=== PATIENT | male | born 1975 | race Caucasian/White ===

== ENCOUNTER 2016-11-26 22:54 | Emergency (ER) | payer OTHER ==
[~2016-11-26 22:54] MED LIST: ABILIFY10 PO; ABILIFY5 PO; ASAB PO; ASABAYER PO; ATV.5 PO; ATV1 PO; BENTYL20 PO; C5 PO; CANNOT RECALL; CELEXA20 PO; CHANTIX1 PO; COREG12 PO; COREG3 PO; COREG6 PO; COUMADIN3 MG; COUMADIN3 MG PO; DEPLIN7.5 MG PO; DEPRESSION MED; ENDOCET1 TA3 PO; FLOMAX4 PO; HUMALOG SC; HYOMAX-FT0.125 MG PO; I20 PO; INSNOV7030 SC; LAMICTAL10 PO; LAMICTAL150 MG PO; LAMICTAL200 MG PO; LAMICTAL25 PO; LANTUS SC; LEVEMIR SC; LEVSINTAB PO; LIPITOR40 PO; LIPITOR80 MG PO; LORT7 PO; LORTAB OR; LORTAB10 PO; LYRICA100 MG PO; LYRICA50 PO; LYRICA75 PO; MEVACOR PO; MSCONT15 PO; MSCONTIN PO; NEUR300 PO; NEUR600 PO; NEUR800 PO; NITROSTAT0.4 MG SL; NOVOLOG SC; NOVOPEN SC; NOVOPENMIX SC; OPANA ER40 MG PO; OXYCOD PO; PEP20 PO; PERCOCET1 TA4 PO; PERCOCET1 TA5 PO; PLAVIX; PLAVIX PO; PR25 PO; PRIN10 PO; PRIN2.5 PO; PROVHFA INH; PROZAC40 MG PO; RANEXA1000 MG PO; REQUIP25 PO; SEROQUEL XR150 MG PO; SEROQUEL1C PO; SEROQUEL200 MG PO; SEROQUEL300 MG PO; SEROQUEL400 MG PO; SPIRIVA INH; SUCR PO; TEG200 PO; TESS PO; TOPAMAX100 PO; TOPAMAX25 PO; TRAZODONE300 MG PO; VIST50 PO; XARELTO20 MG PO; ZESTRIL10 MG PO; ZOCOR10 PO; ZOCOR20 PO; ZOCOR40 PO; [UNRECOGNIZED DRUG - OTHER]; [UNRECOGNIZED DRUG - REMARK]
[2016-11-26 23:19] LABS: BASOPHILS 0.3 %; BASOPHILS ABSOLUTE 0.02 10/3/uL (0.0-0.16); EOSINOPHILS 2.2 %; EOSINOPHILS ABSOLUTE 0.16 10/3/uL (0.0-0.53); ER CBC TAT 0 Hrs 07 Mins; HEMATOCRIT 44.1 % (40.0-51.0); HEMOGLOBIN 15.7 g/dL (13.6-17.8); IMMATURE GRANULOCYTES 0.3 %; IMMATURE GRANULOCYTES ABSOLUTE 0.02 10/3/uL (0.0-0.11); LYMPHOCYTES 37.5 %; LYMPHOCYTES ABSOLUTE 2.74 10/3/uL (0.67-4.30); MEAN CORPUS HGB CONC 35.6 g/dL (32.0-36.0); MEAN CORPUSCULAR HEMOGLOB 33.2 pg (26.0-34.0); MEAN CORPUSCULAR VOLUME 93.2 fL (80-100); MEAN PLATELET VOLUME 11.2 fL (9.2-13.0); MONOCYTES 7.4 %; MONOCYTES ABSOLUTE 0.54 10/3/uL (0.21-1.20); NEUTROPHILS 52.3 %; NEUTROPHILS ABSOLUTE 3.83 10/3/uL (2.02-8.40); PLATELET COUNT 172 10/3/uL (150-400); RED CELL COUNT 4.73 10/6/uL (4.7-6.1); WHITE BLOOD CELLS 7.3 10/3/uL (4.5-10.5)
[2016-11-26 23:23] LABS: MANUAL DIFF NO %
[2016-11-26 23:24] LABS: INTERNATIONAL NORMAL RATI 1.1 UNITS (-); PARTIAL THROMBO TIME 31.5 SEC (22.5-37.2); PROTIME (NOT ORD) 14.2 SEC (12.0-14.5)
[2016-11-26 23:34] LABS: BUN (BLOOD UREA NITROGEN) 13 MG/DL (6-23); CALCIUM, SERUM 8.4 MG/DL (8.5-10.4); CHEST PAIN PROFILE TAT 0 Hrs 22 Mins; CHLORIDE, SERUM 105 MMOL/L (96-112); CO2 (CARBON DIOXIDE) 25 MMOL/L (24-34); CREATININE 0.93 MG/DL (0.70-1.30); GFR AFRICAN AMERICAN 117 ML/MIN (>=60); GFR NON AFRICAN AMERICAN 101 ML/MIN (>=60); GLUCOSE, SERUM 213 MG/DL (60-99); POTASSIUM, SERUM 4.5 MMOL/L (3.5-5.3); SALICYLATE 3.7 MG/DL (-); SODIUM, SERUM 139 MMOL/L (135-148); TROPONIN I <0.02 NG/ML (<0.05)
[2016-11-26 23:35] LABS: INFLUENZA A SCREEN NEGATIVE (NEGATIVE); INFLUENZA B SCREEN NEGATIVE (NEGATIVE)
[2016-11-26 23:36] LABS: ACETAMINOPHEN LEVEL (TYLENOL) < 2.0 MCG/ML (10.0-20.0); ALCOHOL < 10 MG/DL (0)
== END 2016-11-27 00:27 | disposition left against medical advice (07) ==
LOC: ER 22:54
PROVIDERS: Nurse Practitioner
DX: R07.9 Chest pain, unspecified (principal); E11.65 Type 2 diabetes mellitus with hyperglycemia; F11.90 Opioid use, unspecified, uncomplicated; Z72.0 Tobacco use; G89.29 Other chronic pain; I11.0 Hypertensive heart disease with heart failure; I50.9 Heart failure, unspecified; I25.2 Old myocardial infarction; F41.9 Anxiety disorder, unspecified; F32.9 Major depressive disorder, single episode, unspecified; F20.9 Schizophrenia, unspecified; F31.9 Bipolar disorder, unspecified; Z98.61 Coronary angioplasty status; Z95.1 Presence of aortocoronary bypass graft; Z88.0 Allergy status to penicillin; Z88.5 Allergy status to narcotic agent; Z79.4 Long term (current) use of insulin; Z79.82 Long term (current) use of aspirin
CPT/HCPCS: 71010; 80048; 80305; 80307; 81001; 83735; 84484; 85025; 85610; 85730; 87070; 87804; 87880; 93005; 96374; 99285; A9270-GY; J2800